=== PATIENT | female | born 1975 | race Caucasian/White ===

== ENCOUNTER 2017-03-02 14:40 | Emergency (ER) | payer MEDICAID ==
[~2017-03-02] VITALS: Wt 69.5 kg
[2017-03-02] MEDS ORDERED: ELIM TOP (15:01)
--- NOTE | 2017-03-02 15:13 | ERD ---
ER Documentation Chief Complaint Date/Time DATE: 03/02/17 TIME: 15:06 Chief Complaint TOTAL BODY RASH X2 MONTHS HPI 42-year-old female complaining of pruritic skin lesions 2 month. Patient stated that her lesions are intensely itchy, every day she noticed new ones appearing. Most lesions on her arms and legs, with a few on the torso. Denies shortness of breath. Denies exposures to new foods or new cleaning products. ROS All systems reviewed and are negative except as per history of present illness. Medications Home Meds Active Scripts Permethrin* (Elimite*) 5% Cr, 1 APPLIC TOP ONCE, #3 TUB May repeat after 2 weeks. Prov:QUINN PENA. 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 Widespread, discrete, pinpoint erythematous papules noted on patient's all 4 extremities. Lesions noted in the webbing of the hands. Linear tracks noted on the arms and legs as well. Few lesions noted on the torso. Head: Normocephalic without evidence of trauma Eyes: Sclera and conjunctivae normal; pupils equal, round, and reactive to light; extraocular movements are intact Neck: Supple without meningismus or adenopathy. Carotids are equal. Trachea midline. No bruits or JVD Chest: Normal AP diameter. Good expansion without retractions. Nontender. Lungs are clear to auscultate bilaterally with good tidal volume Heart: Regular rate and rhythm. No murmur, rub, or gallops heard Extremities: Full range of motion. Good strength bilaterally. No clubbing, cyanosis, or edema. Peripheral pulses are intact. Sensation intact Neuro: Alert and oriented 4, GCS 15. Cranial nerves grossly intact. Motor and sensory exams nonfocal. Moves all extremities. Speech clear. Gait normal Procedures/MDM 42-year-old female presents to ED with pruritic skin lesions. Her lesions has appearance of scabies infection. I doubt allergic reaction or anaphylaxis. I doubt viral exanthem, drug reaction, pityriasis, eczema, psoriasis, tinea. Patient appears well, stable for discharge and outpatient management. Medical decision making shared with patient and family. Education provided to patient and family. Patient and family expressed understanding of the plan. Medications on discharge: Elimite lotion. Follow-up: Primary care provider in 1 week or return to ED if worse. Departure Diagnosis: Primary Impression: Scabies Condition: Good Patient Instructions: Scabies [facility] Usted se holley hecho un examen mdico de control que le indica que no est en franklin condicin que requiera tratamiento urgente en el Departamento de Emergencia. Un estudio ms profundo y el tratamiento de hyde condicin pueden esperar sin ningn riesgo hasta que usted sea atendida/o en el consultorio de hyde mdico o franklin cl ivan. Es responsabilidad suya arreglar franklin phoebe para el seguimiento del [place]. MANEJO DE CONDICIONES NO URGENTES EN EL FUTURO 1) Si usted tiene un mdico de atencin primaria: Usted debera llamar a hyde mdico de atencin primaria antes de venir al departamento de emergencia. Despus de las horas de consultorio, hyde doctor o hyde asociado/a est disponible por telfono. El mdico o enfermero de lise en el servicio telefnico puede asesorarle por [place] medio para atender el problema, o [place] contrario se puede programar franklin phoebe. 2) Si usted no tiene un mdico de atencin primaria: Llame al mdico o clnica de referencia que aparece abajo ministerio las horas de consultorio para hacer franklin phoebe para que le vean. CLINICAS: [facility] [phone] [facility] [phone] [facility] [phone] [facility] [phone] [facility]. [place] [id number] [phone] [facility] [phone] [address] Additional Instructions: Llame al doctor nombrado abajo (Referral Sources) MAANA y maribel franklin PHOEBE PARA DENTRO DE FRANKLIN SEMANA. Dgale a la secretaria que nosotros le instruimos hacer esta phoebe.Avise o llame si hyde condicin se empeora antes de la phoebe. QUINN PENA NP March 02, 2017 15:13
== END 2017-03-02 15:13 | disposition home or self-care (01) ==
LOC: E/R 14:40
DX: B86 Scabies (principal)
CPT/HCPCS: 99283

== ENCOUNTER 2017-03-09 14:16 | Emergency (ER) | payer MEDICAID ==
[~2017-03-09] VITALS: Wt 70.0 kg
[~2017-03-09 14:16] MED LIST: ELIM TOP
[2017-03-09] MEDS ORDERED: ELIM TOP (14:39)
[2017-03-09] MEDS ORDERED: HC1C30 TOP (14:39)
--- NOTE | 2017-03-09 15:12 | ERD ---
ER Documentation Chief Complaint Date/Time DATE: 03/09/17 TIME: 15:10 Chief Complaint MED REFILL HPI Patient is a 42-year-old female with no past medical history who presents to the ED with refill of permethrin cream. She states that she was here last week for itching on her arms and legs. She states that the cream has helped her. She states that she has had this rash on and off for the last 2 months. 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 She states that she would like a refill of permethrin as well as a note for work. Denies fever or chills. Denies vomiting or diarrhea. Denies headache or dizziness. No other complaints. ROS All systems reviewed and are negative except as per history of present illness. Medications Home Meds Active Scripts Hydrocortisone* Topical (Hydrocortisone* Topical) 1%-28.35 Gm Cream..g., 1 APPLIC TOP Q6 Y for ITCHING, #2 TUB Prov:NOVA KELLEY PA-C 03/09/17 Permethrin* (Elimite*) 5% Cr, 1 APPLIC TOP ONCE for 10 Days, #2 TUB Prov:NOVA KELLEY PA-C 03/09/17 Permethrin* (Elimite*) 5% Cr, 1 APPLIC TOP ONCE, #3 TUB May repeat after 2 weeks. 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 Appears in no acute distress. HEAD: Normocephalic, atraumatic. EYES: Pupils are equally reactive bilaterally. EOMs grossly intact. No conjunctival erythema. ENT: Moist mucous membranes. No uvula deviation. No kissing tonsils. No exudates. NECK: Supple. No lymphadenopathy or thyromegaly. No meningismus. negative kernig. negative brudinski. LUNG: Clear to auscultation bilaterally. No rhonchi, wheezing, rales or coarse breath sounds. HEART: Regular rate and rhythm. No murmurs, rubs or gallops. Extremities: Equal pulses bilaterally. No peripheral clubbing, cyanosis or edema. No unilateral leg swelling. NEUROLOGIC: Alert and oriented. Moving all four extremities. 5/5 strength in all extremities. Normal speech. Steady gait. SKIN: Normal color. Warm and dry. Multiple erythematous papules on arms and legs. No streaking. No signs of infection. No drainage. Dry capillary refill < 2 seconds Procedures/MDM ER COURSE: I kept the patient and/or family informed of laboratory and diagnostic imaging results throughout the emergency room course. MEDICAL DECISION MAKING: This is a 42-year-old female who presents with rash on her arms and legs here requesting a refill of permethrin cream. Vital signs were reviewed. Patient is afebrile. Patient is not hypoxic. Patient is not toxic or ill-appearing. Patient has rash of unknown etiology likely contact dermatitis. Low suspicion for necrotizing fasciitis, SJS, toxic epidermal necrolysis, Kawasaki, erythema multiforme, gangrene, scarlet fever, meningococcemia, sepsis, anaphylaxis, sepsis, deep space infection, or foreign body. DISCHARGE: At this time, patient is stable for discharge and outpatient management with no new complaints during the ER course. Patient was sent home with permethrin, hydrocortisone and a note for work. Patient will be discharged home with instructions to recheck for new or worsening symptoms such as fever, nausea, weakness, LOC and to follow up with primary care in the next 1-2 days. Patient was advised to return to the ER for any new or worsening symptoms. Plan was discussed and patient and/or family understands and agrees. Home instructions were given. Departure Diagnosis: Primary Impression: Encounter for medication refill Condition: Stable Patient Instructions: Contact Dermatitis Referrals: [facility] Usted se holley hecho un examen mdico de control que le indica que no est en franklin condicin que requiera tratamiento urgente en el Departamento de Emergencia. Un estudio ms profundo y el tratamiento de hyde condicin pueden esperar sin ningn riesgo hasta que usted sea atendida/o en el consultorio de hyde mdico o franklin cl ivan. Es responsabilidad suya arreglar franklin phoebe para el seguimiento del [place]. MANEJO DE CONDICIONES NO URGENTES EN EL FUTURO 1) Si usted tiene un mdico de atencin primaria: Usted debera llamar a hyde mdico de atencin primaria antes de venir al departamento de emergencia. Despus de las horas de consultorio, hyde doctor o hyde asociado/a est disponible por telfono. El mdico o enfermero de lise en el servicio telefnico puede asesorarle por [place] medio para atender el problema, o [place] contrario se puede programar franklin phoebe. 2) Si usted no tiene un mdico de atencin primaria: Llame al mdico o clnica de referencia que aparece abajo ministerio las horas de consultorio para hacer franklin phoebe para que le vean. CLINICAS: [facility] [phone] [facility] [phone] [facility]. [facility] [phone] [facility]. [place] [phone] [facility]. [place] [phone] [facility]. [phone] [address] Additional Instructions: Llame al doctor MAANA y maribel franklin PHOEBE PARA DENTRO DE 1-2 SHARMA.Dgale a la secretaria que nosotros le instruimos hacer esta phoebe.Avise o llame si hyde condicin se empeora antes de la phoebe. Regresa aqui si peor o no mejor. NOVA KELLEY PA-C Mar 09, 2017 15:12
== END 2017-03-09 14:40 | disposition home or self-care (01) ==
LOC: E/R 14:16
DX: Z76.0 Encounter for issue of repeat prescription (principal); L53.9 Erythematous condition, unspecified
CPT/HCPCS: 99283